=== PATIENT | male | born 1950 | race Two or more races ===

== ENCOUNTER → 2016-10-02 | Outpatient (CLI) | payer MEDICARE, OTHER ==
--- NOTE | 2016-10-02 08:36 | REP ---
Clinical: History of abdominal aortic aneurysm. Technique: Real time cosby scale and color evaluation using curved array transducer. Findings: Ultrasound examination demonstrates ectasia to the proximal abdominal aorta with aneurysmal dilatation of the mid to distal aorta extending to but not including the bifurcation into common iliac arteries. The aneurysmal portion of the aorta measures roughly 4.8 x 5.7 cm maximal AP and transverse diameter approximately 10 cm in length. The renal arteries are not visualized and aneurysmal dilatation in relation to the renal arteries cannot be evaluated. Color evaluation suggests circumferential mural thrombus with residual patent lumen through the abdominal aortic aneurysm measuring 2.1 x 2.9 cm AP and transverse diameter. Proximal aorta 3.4 x 4.0 cm. Mid aorta 4.8 x 5.7 cm. Distal aorta 4.3 x 4.2 cm. Right common iliac artery 1.6 x 1.6 cm. Left common iliac artery 1.6 x 1.6 cm. Impression: Abdominal aortic aneurysm as described above. Its relation to the renal arteries cannot be evaluated due to superimposed bowel gas. No prior examination is available for comparison. Consider pre and postcontrast CT angiography for further investigation. Signed by Rambo Wan MD 10/02/2016 08:28 A
== END ==
LOC: M RAD 06:38
PROVIDERS: ATTEND Family Medicine
DX: I71.4 Abdominal aortic aneurysm, without rupture (principal)

== ENCOUNTER → 2016-10-16 | Outpatient (REF) | payer MEDICARE, OTHER ==
[2016-10-16 16:49] LABS: ANION GAP 9 MEQ/L (8-16); BLOOD UREA NITROGEN 12 MG/DL (7-18); CALCIUM LEVEL 9.1 MG/DL (8.8-10.2); CARBON DIOXIDE LEVEL 28 MEQ/L (21-32); CHLORIDE LEVEL 97 MEQ/L (98-107); CHOLESTEROL LEVEL 152 MG/DL (<200); CREATININE FOR GFR 0.93 MG/DL (0.70-1.30); GLOMERULAR FILTRATION RATE > 60.0 (>49); GLUCOSE, FASTING 82 MG/DL (80-110); POTASSIUM SERUM 3.9 MEQ/L (3.5-5.1); SODIUM LEVEL 134 MEQ/L (136-145); TRIGLYCERIDES LEVEL 251 MG/DL (<150)
== END ==
LOC: M SFHCPLAZ 13:49
PROVIDERS: ATTEND Family Medicine
DX: I10 Essential (primary) hypertension (principal); Z82.49 Family history of ischemic heart disease and other diseases of the circulatory system
CPT/HCPCS: 36415; 80048; 80061; 83036; G0463

== ENCOUNTER → 2018-06-12 | Outpatient (CLI) | payer MEDICARE, OTHER | LOC: M SMT 08:27 | DX: M25.561 Pain in right knee (principal) | CPT/HCPCS: 73560 ==

== ENCOUNTER → 2020-10-17 | Outpatient (CLI) | payer MEDICARE, OTHER ==
--- NOTE | 2020-10-17 09:16 | REP ---
INDICATION: NICOTINE DEPENDENCE, CIGARETTES, UNCOMPLICATED. COMPARISON: None. TECHNIQUE: A does lung screening CT per protocol with 3 mm axial lung windows presented for review FINDINGS: There is some curvilinear fibrotic change posteriorly in the right apex paraspinal region on images 9 and 10. There is no parenchymal mass, pleural plaque or calcified plaque. On image 57 there is a superior segment left lower lobe pulmonary nodule, only 2.7 mm and pleural based. There are no calcified nodules or other pleural findings. No bronchiectasis. No acute infiltrate. No pleural effusion. Heart size not grossly enlarged. The aorta is calcified at the arch and descending portion as well some coronary calcifications noted. IMPRESSION: 1. Lung RADS category 1. Negative examination. No evidence of malignancy. Patients with this category of findings have less than 1% chance of malignancy at the time of examination. Annual low-dose lung screening CT recommended for patients at high risk of lung malignancy. <Electronically signed by Felix Mederos > 10/17/20 [id number]
== END ==
LOC: M RAD 08:19
PROVIDERS: ATTEND Physician Assistant
DX: F17.210 Nicotine dependence, cigarettes, uncomplicated (principal)

== ENCOUNTER → 2021-01-20 | Outpatient (REF) | payer MEDICARE, OTHER ==
[2021-01-20 12:37] LABS: HEMATOCRIT 41.6 % (42.0-52.0); HEMOGLOBIN 13.8 g/dl (13.5-17.5); MEAN CORPUSCULAR HEMOGLOBIN 32.4 pg (27.0-33.0); MEAN CORPUSCULAR HGB CONC 33.2 g/dl (32.0-36.5); MEAN CORPUSCULAR VOLUME 97.7 fl (80.0-96.0); PLATELET COUNT, AUTOMATED 315 10^3/uL (150-450); RED BLOOD COUNT 4.26 10^6/uL (4.30-6.10); WHITE BLOOD COUNT 9.7 10^3/uL (4.0-10.0)
[2021-01-20 12:55] LABS: HEMOGLOBIN A1c 5.4 %
[2021-01-20 13:23] LABS: ALBUMIN 3.7 GM/DL (3.2-5.2); ALT/SGPT 73 U/L (12-78); BILIRUBIN,TOTAL 0.4 MG/DL (0.2-1.0); BLOOD UREA NITROGEN 15 MG/DL (7-18); CALCIUM LEVEL 9.3 MG/DL (8.8-10.2); CARBON DIOXIDE LEVEL 28 MEQ/L (21-32); CHLORIDE LEVEL 102 MEQ/L (98-107); CHOLESTEROL LEVEL 179 MG/DL (<200); CREATININE FOR GFR 0.74 MG/DL (0.70-1.30); FREE T4 0.95 NG/DL (0.76-1.46); GLOMERULAR FILTRATION RATE > 60.0 (>42); GLUCOSE, FASTING 116 MG/DL (70-100); HDL CHOLESTEROL 57 MG/DL (>40); LDL CHOLESTEROL 87 MG/DL (<100); NON-HDL-C 122 MG/DL; POTASSIUM SERUM 3.2 MEQ/L (3.5-5.1); SODIUM LEVEL 138 MEQ/L (136-145); TOTAL PROTEIN 7.4 GM/DL (6.4-8.2); TRIGLYCERIDES LEVEL 175 MG/DL (<150)
== END ==
LOC: M SFHCPLAZ 11:03
PROVIDERS: ATTEND Physician Assistant
DX: J44.9 Chronic obstructive pulmonary disease, unspecified (principal); I10 Essential (primary) hypertension; Z13.29 Encounter for screening for other suspected endocrine disorder; R73.01 Impaired fasting glucose; E78.2 Mixed hyperlipidemia; Z12.5 Encounter for screening for malignant neoplasm of prostate
CPT/HCPCS: 36415; 80053; 80061; 83036; 84439; 84443; 85027; G0103

== ENCOUNTER → 2021-02-23 | Outpatient (CLI) | payer MEDICARE, OTHER | LOC: M PLALAB 09:47 | PROVIDERS: ATTEND Urology | DX: R97.20 Elevated prostate specific antigen [PSA] (principal) ==

== ENCOUNTER → 2021-03-29 | Outpatient (CLI) | payer MEDICARE, OTHER | LOC: M PLAIMG 13:22 | PROVIDERS: ATTEND Urology | DX: Z53.9 Procedure and treatment not carried out, unspecified reason (principal) ==

== ENCOUNTER → 2021-04-12 | Outpatient (REF) | payer MEDICARE, OTHER | LOC: M SMT PRO 09:07 | PROVIDERS: ATTEND Urology | DX: C61 Malignant neoplasm of prostate (principal) ==

== ENCOUNTER → 2021-04-26 | Outpatient (CLI) | payer MEDICARE, OTHER ==
[2021-04-26 12:18] LABS: BLOOD UREA NITROGEN 11 MG/DL (7-18); CALCIUM LEVEL 8.8 MG/DL (8.8-10.2); CARBON DIOXIDE LEVEL 28 MEQ/L (21-32); CHLORIDE LEVEL 106 MEQ/L (98-107); CREATININE FOR GFR 0.86 MG/DL (0.70-1.30); GLOMERULAR FILTRATION RATE > 60.0 (>42); GLUCOSE, FASTING 88 MG/DL (70-100); POTASSIUM SERUM 4.1 MEQ/L (3.5-5.1); SODIUM LEVEL 139 MEQ/L (136-145)
== END ==
LOC: M PLALAB 07:34
PROVIDERS: ATTEND Urology
DX: C61 Malignant neoplasm of prostate (principal)

== ENCOUNTER → 2021-05-24 | Outpatient (CLI) | payer MEDICARE, OTHER ==
[~2021-05-24] MED LIST: ISOVUE-370 76% 100ML VIAL As Ordered ONE
--- NOTE | 2021-05-24 11:31 | REP ---
INDICATION: PROSTATE CA NM 1ST CT 2ND BACK TO [place]. COMPARISON: None TECHNIQUE: Axial contrast-enhanced images from the lung bases to the pubic symphysis using 100 cc Isovue 370 intravenous contrast material. Coronal and sagittal reformations obtained along with delayed images of the abdomen. This CT examination was performed using the following dose reduction techniques: Automated exposure control, adjustment of mA and/or kv according to the patient's size, and the use of iterative reconstruction technique. FINDINGS: Liver demonstrates fatty infiltration without focal hepatic lesion. Spleen, pancreas, gallbladder, and bilateral adrenal glands are normal. Kidneys demonstrate mild age-related changes along with suspected right extrarenal pelvis and mild chronic right hydronephrosis without obstruction or hydroureter. The enteric system is without obstruction or acute inflammatory process.. Pelvis demonstrates prostatomegaly with mass effect on the base of the bladder. No significant pelvic adenopathy identified. Patient is noted to be status post aorto bi iliac stent graft placement without obvious acute changes noted. No ascites. No free air. No intraperitoneal or retroperitoneal adenopathy. Musculoskeletal structures are intact and without acute osseous abnormality. IMPRESSION: 1. No acute abdominopelvic pathology appreciated. 2. Mildly enlarged prostate gland with mass effect on the base of the bladder. No periprostatic stranding, fluid or adenopathy. No obvious metastatic disease noted. 3. Hepatosteatosis. 4. Aorto bi iliac stent graft placement. <Electronically signed by Rambo Wan > 05/24/21 [id number]
--- NOTE | 2021-05-24 14:57 | REP ---
INDICATION: PROSTATE CA NM 1ST CT 2ND BACK TO [place]. COMPARISON: None. TECHNIQUE/RADIOTRACER AND DOSE: After the intravenous administration of 20.20 mCi of technetium 99 M MDP whole-body bone scan was obtained. FINDINGS: Increased activity seen in the shoulders, right elbow, wrists, hips, knees, and feet. There is radiotracer retention in the right kidney. There is a single focal area of increased activity seen in the right femoral neck region. IMPRESSION: 1. There is a degenerative type uptake pattern seen in the shoulders, right elbow, wrists, hips, knees, and feet. 2. There is a single focus of increased activity in the right femoral neck region which needs further investigation. Review of the CT scan of the abdomen and pelvis obtained same day showed a focal 1.5 cm sized area of increased density in the right femoral neck. Small blastic lesion cannot be ruled out. Consider pre and post gadolinium enhanced MRI of the right hip. 3. Radiotracer retention in the right kidney suspicious for hydronephrosis. Etiology uncertain. Review of the CT scan earlier today showed no evidence of significant hydronephrosis or obstructive uropathy. Follow-up is recommended. <Electronically signed by En Morales > 05/24/21 [id number]
== END ==
LOC: M RAD 10:29
PROVIDERS: ATTEND Urology
DX: C61 Malignant neoplasm of prostate (principal)
CPT/HCPCS: 74177; 78306; A9503; Q9967

== ENCOUNTER → 2021-08-02 | Outpatient (CLI) | payer MEDICARE, OTHER ==
[2021-08-02 11:04] LABS: BLOOD UREA NITROGEN 11 MG/DL (7-18); CALCIUM LEVEL 9.4 MG/DL (8.8-10.2); CARBON DIOXIDE LEVEL 30 MEQ/L (21-32); CHLORIDE LEVEL 100 MEQ/L (98-107); CREATININE FOR GFR 0.84 MG/DL (0.70-1.30); GLOMERULAR FILTRATION RATE > 60.0 (>42); GLUCOSE, FASTING 107 MG/DL (70-100); POTASSIUM SERUM 3.4 MEQ/L (3.5-5.1); SODIUM LEVEL 137 MEQ/L (136-145)
== END ==
LOC: M PLALAB 07:54
PROVIDERS: ATTEND Urology
DX: M89.9 Disorder of bone, unspecified (principal)

== ENCOUNTER → 2021-08-14 | Outpatient (CLI) | payer MEDICARE, OTHER ==
[~2021-08-14] MED LIST changes: -ISOVUE-370 76% 100ML VIAL As Ordered ONE; +PROHANCE 279.3MG/ML 15ML VIAL As Ordered ONE; +PROHANCE 279.3MG/ML 5ML VIAL As Ordered ONE
== END ==
LOC: M RAD 06:59
PROVIDERS: ATTEND Urology
DX: M89.9 Disorder of bone, unspecified (principal)
CPT/HCPCS: 73720; A9576

== ENCOUNTER → 2021-10-02 | Outpatient (CLI) | payer MEDICARE, OTHER | LOC: M EKG 08:13 | PROVIDERS: ATTEND Physician Assistant | DX: Z53.9 Procedure and treatment not carried out, unspecified reason (principal); I49.3 Ventricular premature depolarization; I10 Essential (primary) hypertension ==

== ENCOUNTER → 2021-10-11 | Outpatient (CLI) | payer MEDICARE, OTHER ==
[2021-10-11 07:47] LABS: BASO % 0.3 % (0.0-1.0); EOS # 0.2 10^3/uL (0.0-0.5); EOS % 2.2 % (0.0-3.0); HEMATOCRIT 39.4 % (42.0-52.0); HEMOGLOBIN 13.3 g/dl (13.5-17.5); LYMPH # 2.3 10^3/uL (1.5-5.0); LYMPH % 30.3 % (24.0-44.0); MEAN CORPUSCULAR HEMOGLOBIN 32.1 pg (27.0-33.0); MEAN CORPUSCULAR HGB CONC 33.8 g/dl (32.0-36.5); MEAN CORPUSCULAR VOLUME 95.2 fl (80.0-96.0); MONO # 1.1 10^3/uL (0.0-0.8); NEUTROPHILS # 3.9 10^3/uL (1.5-8.5); NEUTROPHILS % 51.9 % (36.0-66.0); PLATELET COUNT, AUTOMATED 283 10^3/uL (150-450); RED BLOOD COUNT 4.14 10^6/uL (4.30-6.10); WHITE BLOOD COUNT 7.6 10^3/uL (4.0-10.0)
[2021-10-11 08:05] LABS: ALBUMIN 3.8 GM/DL (3.2-5.2); ALT/SGPT 27 U/L (12-78); BILIRUBIN,TOTAL 0.2 MG/DL (0.2-1.0); BLOOD UREA NITROGEN 12 MG/DL (7-18); CALCIUM LEVEL 9.1 MG/DL (8.8-10.2); CARBON DIOXIDE LEVEL 26 MEQ/L (21-32); CHLORIDE LEVEL 107 MEQ/L (98-107); CHOLESTEROL LEVEL 216 MG/DL (<200); CHOLESTEROL RISK RATIO 4.595 (<5); CREATININE FOR GFR 0.95 MG/DL (0.70-1.30); GLOMERULAR FILTRATION RATE > 60.0 (>42); GLUCOSE, FASTING 97 MG/DL (70-100); HDL CHOLESTEROL 47 MG/DL (>40); LDL CHOLESTEROL 124 MG/DL (<100); NON-HDL-C 169 MG/DL; POTASSIUM SERUM 3.9 MEQ/L (3.5-5.1); SODIUM LEVEL 139 MEQ/L (136-145); TOTAL PROTEIN 7.6 GM/DL (6.4-8.2); TRIGLYCERIDES LEVEL 226 MG/DL (<150)
[2021-10-11 10:41] LABS: CREATININE, URINE 39.8 MG/DL; MALB URINE SIEMENS 26.3 MG/L
== END ==
LOC: M LAB 07:04
PROVIDERS: ATTEND Physician Assistant
DX: I10 Essential (primary) hypertension (principal); J44.9 Chronic obstructive pulmonary disease, unspecified; E78.2 Mixed hyperlipidemia

== ENCOUNTER → 2021-11-01 | Outpatient (CLI) | payer MEDICARE, OTHER | LOC: M RAD 06:56 | PROVIDERS: ATTEND Physician Assistant | DX: F17.210 Nicotine dependence, cigarettes, uncomplicated (principal) ==

== ENCOUNTER → 2021-11-13 | Outpatient (CLI) | payer MEDICARE, OTHER | LOC: M PLALAB 09:59 | PROVIDERS: ATTEND Urology | DX: C61 Malignant neoplasm of prostate (principal) ==